=== PATIENT | male | born 1955 | race Caucasian/White ===

== ENCOUNTER → 2024-01-15 08:54 | Outpatient (CLI) | payer MEDICARE, SELFPAY ==
[2024-01-15 09:57] LABS: Hematocrit 43.6 % (41-53); Hemoglobin 14.8 g/dL (13.5-17.5); Mean Corpuscular Hemoglobin 29.7 PG (26-34); Mean Corpuscular Volume 87.3 fL (80-100); Platelet Count 198 X10^3/uL (150-400); Red Blood Cell Count 4.99 X10^6/uL (4.5-5.9); Red Cell Distribution Width 13.8 % (11.6-14.8); White Blood Cell Count 5.7 X10^3/uL (4.5-11.0)
[2024-01-15 10:43] LABS: Alanine Aminotransferase 28 IU/L (<50); Albumin 4.4 g/dL (3.5-5.0); Albumin Globulin Ratio 1.8 (1.0-2.8); Alkaline Phosphatase 61 U/L (38-126); Aspartate Aminotransferase 32 IU/L (17-59); BUN Creatinine Ratio 16.2 (6-22); Blood Urea Nitrogen 19 mg/dL (9-20); Calcium 9.1 mg/dL (8.4-10.2); Carbon Dioxide 31 mmol/L (22-32); Chloride 104 mmol/L (98-107); Cholesterol 201 mg/dL (140-199); Estimated Glomerular Filt Rate > 60 mL/min (>60); Globulin 2.5 g/dL (1.7-4.1); Glucose 106 mg/dL (80-110); HDL Cholesterol 58 mg/dL (40-60); HEMOLYSIS < 15 (0-50); LDL Cholesterol Calculated 123 mg/dL (<100); Potassium 5.1 mmol/L (3.4-5.1); Sodium 139 mmol/L (137-145); Total Protein 6.9 g/dL (6.3-8.2); Triglycerides 98 mg/dL (35-150)
[2024-01-15 10:44] LABS: Hemoglobin A1C% w Est Avg Glu 5.6 % (4.0-6.0)
[2024-01-15 11:10] LABS: Prostate Specific Antigen Scrn 0.981 ng/mL (0.1-4.0)
[2024-01-15 11:42] LABS: Hep C Virus Ab w/Reflex Quant NEGATIVE s/c (NEGATIVE)
== END ==
PROVIDERS: PCP Family Medicine; Referring Provider Family Medicine; Visit Provider Family Medicine
DX: K62.5 Hemorrhage of anus and rectum (principal); Z12.5 Encounter for screening for malignant neoplasm of prostate; R20.0 Anesthesia of skin; J34.89 Other specified disorders of nose and nasal sinuses; Z11.59 Encounter for screening for other viral diseases; Z12.11 Encounter for screening for malignant neoplasm of colon
CPT/HCPCS: 36415; 80053; 80061; 83036; 85027; 86803; G0103

== ENCOUNTER 2024-04-29 07:55 | Day surgery (SDC) | payer MEDICARE, SELFPAY ==
--- NOTE | 2024-04-29 | PATH_ITS ---
[facility] Accession Number: [id number] No. of containers..01 Tissue . 01 Material submitted: . rectum - RECTAL POLYP . 01 Diagnosis: A. RECTUM, POLYPECTOMY: Tubulovillous adenoma. [facility] 05/01/2024 1420 Local . 01 Electronically signed: . Karen Reyes MD, Pathologist NPI- [id number] . 01 Gross description: . Received in formalin with two patient identifiers and rectal polyp, are two roberto to brown soft tissue fragments ranging from 0.4 x 0.3 x 0.3 cm to 0.8 x 0.6 x 0.7 cm. The larger fragment is inked blue and sectioned. All submitted entirely in A1. ([id number]) /V 04/30/2024 1041 Local . 01 Pathologist provided ICD-10: Z12.11 . 01 CPT . 018617 Specimen Comment: A courtesy copy of this report has been sent to [phone] Performed at: [address] [id number] MD Loi Aldana MD Phone: [phone]
[2024-04-29 08:30] VITALS: BP 151/97; PULSE 80; RESP 17; TEMP 36.6; O2SAT 96
[2024-04-29] MEDS: LACTATED RINGERS 1,000 ML 42 ML IV (08:44)
--- NOTE | 2024-04-29 09:10 | PM.HP.1 ---
History of Present Illness History of Present Illness Date Patient Seen: 04/29/24 Time Patient Seen: 09:10 Chief complaint: Colonoscopy Narrative: 68M here for 1st time screening colonoscopy. Recently had few episodes of rectal bleeding now resolved. No family hx of colon cancer. PFSH Surgical History (Updated 02/19/24 @ 21:42 by Alma Nur) Anesthesia History of hand surgery (~1984) History of shoulder surgery (~2004) Family History (Updated 02/19/24 @ 21:43 by Alma Nur) Father History of heart disease Social History Smoking Status: Never smoker alcohol intake: current Meds Home Medications and Allergies Home Medications Medication Instructions Recorded Confirmed Type fluticasone propionate 50 2 spray intranasal DAILY PRN nasal 01/15/24 04/29/24 Rx mcg/actuation nasal congestion #16 grams spray,suspension (Flonase Allergy Relief) ibuprofen 200 mg tablet 400 mg PO Q8H 01/15/24 04/29/24 History Allergies Allergy/AdvReac Type Severity Reaction Status Date / Time No Known Drug Allergies Allergy Verified 04/29/24 08:24 Exam Vital Signs (past 8 hours): - 04/29/24 08:30 Temperature 97.9 F Pulse Rate 80 Respiratory Rate 17 Blood Pressure 151/97 H Pulse Oximetry 96 Oxygen Delivery Method Room Air Oxygen Delivery Method Room Air Narrative Exam Narrative: General adult man alert oriented no acute distress Chest nonlabored respiration Extremities warm well perfused Assessment & Plan Assessment & Plan narrative: The patient requires colorectal screening and colonoscopy is recommended. Technical details were discussed. Risks, benefits, alternatives explained. Risks including but not limited to myocardial infarction, aspiration, bleeding, pain, missed lesion, incomplete examination, need for further radiographic studies, intestinal injury, and need for major abdominal surgery were discussed. All questions were answered to their satisfaction, and they are in agreement with this plan. Time-Based Coding :: [TOTAL MINUTES] spent with patient and on the chart (including review of chart, obtaining history, exam, reviewing outside data, placing orders, documenting exam and treatment plan, and counseling patient) on [DATE].
--- NOTE | 2024-04-29 09:18 | P.OP.COLON_ITS ---
Operative Date/Time/Diagnoses Date of procedure: 04/29/24 Time of procedure: 09:19 Pre-op diagnosis: Colorectal screening Procedure & Clinicians Study performed: Screening colonoscopy Same procedure as scheduled: Yes Indications: Colorectal screening Surgeon: Levon Barraza Procedure Notes Procedure in detail: The history and physical was performed/updated and the patient is ASA class is 2. The procedure was discussed in detail with the patient. Potential risks co mplications including infection, bleeding, missed diagnosis, perforation, need for surgery, and were explained. Their questions were answered and informed consent was obtained. Patient was brought to the procedure room and placed standard monitoring equipment. The patient's vital signs were monitored continuously throughout the entire procedure. Prior to starting time-out was performed. The patient was placed in the left lateral recumbent position. Procedural sedation was administered by anesthesia. Examination began with a thorough inspection of the perianal area there was no evidence of fissures, fistulae, external hemorrhoids or cutaneous malignancy. The colonoscopy scope was then placed into the anal canal and was advanced to the cecum, which was identified by the ileocecal valve, the appendiceal orifice and the confluence of the taenia. The scope was then slowly withdrawn examining colon thoroughly in all directions, irrigating it of any residual stool. The scope was retroflexed within the rectum The patient tolerated the procedure well. They will be discharged once criteria are met. The prep was of good/excellent quality. The withdrawl time was 9 minutes. FINDINGS * Rectum 8 mm sessile polyp removed with hot snare. * Mild diverticulosis of descending colon Specimen(s): other (Rectal polyp) Impression: Colonic polyp x1 Post-procedure Recommendations: High fiber diet Plan for aftercare: Follow-up is dependent on pathology findings Disposition: same day surgery
[2024-04-29 09:46] VITALS: BP 113/82; PULSE 69; RESP 18; TEMP 36.7; O2SAT 97
[2024-04-29 09:51] VITALS: BP 115/86; PULSE 78; RESP 21; TEMP 36.7; O2SAT 98
[2024-04-29 09:57] VITALS: BP 127/89; PULSE 70; RESP 15; O2SAT 99
== END 2024-04-29 10:07 | disposition home or self-care (01) ==
PROVIDERS: PCP Family Medicine; Referring Provider Surgery; Visit Provider Surgery
PROC: 0DJD8ZZ Inspection of Lower Intestinal Tract, Via Natural or Artificial Opening Endoscopic (ICD-10-PCS; CPT 45378; principal; 2024-04-29 09:15)
DX: Z12.11 Encounter for screening for malignant neoplasm of colon (principal); K57.30 Diverticulosis of large intestine without perforation or abscess without bleeding; D12.8 Benign neoplasm of rectum
CPT/HCPCS: 45385; J2704